=== PATIENT | male | born 1970 | race Caucasian/White ===

== ENCOUNTER 2017-12-07 11:04 | Day surgery (SDC) | payer BC ==
[2017-12-07 10:10] VITALS: BMI 30.4
[2017-12-07] MEDS ORDERED: ceFAZolin SODIUM 1 GM VIAL ONE (12:02)
[2017-12-07] MEDS ORDERED: ceFAZolin SODIUM 1 GM VIAL IVPB ONE (12:34)
[2017-12-07 12:56] VITALS: TEMP 97.5
[2017-12-07 15:13] VITALS: BP 118/78; PULSE 67
== END 2017-12-07 13:55 | disposition home or self-care (01) ==
LOC: JASU-ENDO 11:04
PROVIDERS: ATTEND Internal Medicine Gastroenterology
PROC: 06L38CZ Occlusion of Esophageal Vein with Extraluminal Device, Via Natural or Artificial Opening Endoscopic (ICD-10-PCS; principal; 2017-12-07 10:00)
DX: K76.6 Portal hypertension (principal); K31.89 Other diseases of stomach and duodenum; I85.10 Secondary esophageal varices without bleeding; K70.30 Alcoholic cirrhosis of liver without ascites